=== PATIENT | female | born 1975 | race American Indian/Alaskan Native ===

== ENCOUNTER 2021-12-30 07:59 | Emergency (ER) | payer SELFPAY ==
[2021-12-30] MEDS ORDERED: DICYCLOMINE 20 MG/2 ML INJ IM ONE (10:16)
[2021-12-30] MEDS ORDERED: ONDANSETRON 4 MG ODT TAB PO ONE (10:16)
--- NOTE | 2021-12-30 11:33 | Ultrasound Report ---
ULTRASOUND ABDOMEN, COMPLETE INDICATION: n/v, abdominal pain. COMPARISON: No relevant prior imaging study available. FINDINGS: Pancreas: No significant abnormality. Abdominal Aorta: No significant abnormality. IVC: No significant abnormality. Liver: The liver measures 15 cm in length. No significant abnormality. Normal hepatopedal blood flow in the main portal vein. Gallbladder: No significant abnormality. Bile ducts: No significant abnormality. Common bile duct measures 2 mm. Kidneys: Right: 10.4 cm in length. No significant abnormality. Left: 9.6 cm in length. No signifi cant abnormality. Spleen: No significant abnormality. Free fluid: None. Additional Findings: None. IMPRESSION: No sonographic abnormality of the abdomen. Signer Name: Ike Torres Jr, MD Signed: 12/30/2021 11:29 AM Workstation Name: [id number]
[2021-12-30 11:38] LABS: Mean Corpuscular HGB Conc 31 % (30-34); Mean Corpuscular Volume 71 fl (79-97); Red Blood Count 6.57 M/mm3 (3.65-5.03); Red Cell Distribution Width 17.2 % (13.2-15.2)
[2021-12-30 11:41] LABS: Hematocrit 46.6 % (30.3-42.9); Hemoglobin 14.2 gm/dl (10.1-14.3)
[2021-12-30 11:53] LABS: Alanine Aminotransferase 11 units/L (7-56); Albumin 3.8 g/dL (3.9-5); Blood Urea Nitrogen 16 mg/dL (7-17); Calcium 9.8 mg/dL (8.4-10.2); Hemolysis Index 35
[2021-12-30 12:10] LABS: BUN/Creatinine Ratio 27
[2021-12-30 12:14] LABS: Platelet Count 299 K/mm3 (140-440)
[2021-12-30 13:20] LABS: Bilirubin,Urine NEG (Negative); Blood,Urine SM (Negative); Color,Urine Yellow (Yellow); Mucus,Urine 3+ /HPF; Urobilinogen,Urine < 2.0 mg/dL (<2.0)
--- NOTE | 2021-12-30 13:31 | Emergency Department Report ---
<JOELTRAYGABRIELE BERMANYENIMARISAKarma Gonzales - Last Filed: 12/30/21 16:51> ED N/V/D HPI - General Chief complaint: Nausea/Vomiting/Diarrhea Stated complaint: STOMACH PAIN/VOMITING Time Seen by Provider: 12/30/21 09:57 Source: patient Mode of arrival: Ambulatory Limitations: No Limitations - History of Present Illness Initial comments: 46-year-old black female with a past medical history of hypertension presents to the emergency department for evaluation of 2-day history of nausea, vomiting, and epigastric pain. She states that pain is mostly intermittent but when it comes it is a sharp ache. She denies fever, sick contacts, dysuria, and vaginal discharge. She states that pain mostly to the epigastric and right upper quadrant and is 8 out of 10 and worse with palpation. MD complaint: nausea, vomiting, abdominal pain -: Gradual, days(s) (2) Associated Abdominal Pain: Yes Location: LUQ, RUQ, epigastric Radiation: none Severity: severe Pain Scale: 8 Quality: cramping Consistency: intermittent Worsens with: other (Palpation) Associated Symptoms: denies other symptoms. denies: myalgias, chest pain, cough, diaphoresis, fever/chills, headaches, loss of appetite, malaise, nausea/vomiting, rash, dysuria, shortness of breath, syncope, weakness - Related Data Previous Rx's Medication Instructions Recorded Last Taken Type Dicyclomine [Bentyl] 20 mg PO QID PRN #21 tablet 12/30/21 Unknown Rx Ondansetron [Zofran Odt] 4 mg PO Q8HR PRN #12 tab.rapdis 12/30/21 Unknown Rx Allergies Allergy/AdvReac Type Severity Reaction Status Date / Time No Known Allergies Allergy Unverified 12/30/21 08:17 ED Review of Systems Comment: All other systems reviewed and negative Constitutional: denies: chills, fever Eyes: denies: eye discharge ENT: denies: congestion Respiratory: denies: cough, orthopnea, shortness of breath, SOB with exertion, SOB at rest, wheezing Cardiovascular: denies: chest pain, palpitations, dyspnea on exertion, orthopnea, edema, syncope, paroxysmal nocturnal dyspnea Gastrointestinal: abdominal pain, nausea, vomiting. denies: diarrhea, constipation, hematemesis, melena, hematochezia Genitourinary: denies: urgency, dysuria, frequency, hematuria, discharge, abnormal menses Musculoskeletal: denies: back pain Skin: denies: rash, lesions Neurological: denies: headache, weakness, numbness, paresthesias, abnormal gait Psychiatric: denies: anxiety, depression ED Past Medical Hx - Medications Home Medications: Home Medications Medication Instructions Recorded Confirmed Last Taken Type Dicyclomine [Bentyl] 20 mg PO QID PRN #21 tablet 12/30/21 Unknown Rx Ondansetron [Zofran Odt] 4 mg PO Q8HR PRN #12 tab.rapdis 12/30/21 Unknown Rx ED Physical Exam - General Limitations: No Limitations General appearance: alert, in no apparent distress - Head Head exam: Present: atraumatic, normocephalic - Eye Eye exam: Present: normal appearance - ENT ENT exam: Present: normal exam - Neck Neck exam: Present: normal inspection, full ROM. Absent: tenderness, lymphadenopathy - Respiratory Respiratory exam: Present: normal lung sounds bilaterally. Absent: respiratory distress, wheezes, rales, rhonchi, stridor, chest wall tenderness - Cardiovascular Cardiovascular Exam: Present: regular rate, normal heart sounds - GI/Abdominal GI/Abdominal exam: Present: soft, tenderness (Bilateral upper quadrant and epigastric area), normal bowel sounds. Absent: distended, guarding, rebound, rigid - Extremities Exam Extremities exam: Present: normal inspection, normal capillary refill. Absent: pedal edema, joint swelling, calf tenderness - Back Exam Back exam: Present: normal inspection. Absent: CVA tenderness (R), CVA tenderness (L) - Neurological Exam Neurological exam: Present: alert, oriented X3. Absent: normal gait - Psychiatric Psychiatric exam: Present: normal affect, normal mood - Skin Skin exam: Present: warm, dry, intact, normal color ED Course - Reevaluation(s) Reevaluation #1: 12/30/21 13:20 Symptoms mostly resolved with medication, and patient states that she feels much better. ED Medical Decision Making - Lab Data Result diagrams: 12/30/21 11:17 12/30/21 11:17 - Radiology Data Radiology results: report reviewed, image reviewed Ultrasound abdominal complete: FINDINGS: Pancreas: No significant abnormality. Abdominal Aorta: No significant abnormality. IVC: No significant abnormality. Liver: The liver measures 15 cm in length. No significant abnormality. Normal hepatopedal blood flow in the main portal vein. Gallbladder: No significant abnormality. Bile ducts: No significant abnormality. Common bile duct measures 2 mm. Kidneys: Right: 10.4 cm in length. No significant abnormality. Left: 9.6 cm in length. No significant abnormality. Spleen: No significant abnormality. Free fluid: None. Additional Findings: None. IMPRESSION: No sonographic abnormality of the abdomen. - Medical Decision Making 46-year-old black female with a past medical history of hypertension presents to the emergency department for evaluation of 2-day history of nausea, vomiting, and epigastric pain. She states that pain is mostly intermittent but when it comes it is a sharp ache. She denies fever, sick contacts, dysuria, and vaginal discharge. She states that pain mostly to the epigastric and right upper quadrant and is 8 out of 10 and worse with palpation. No gross abnormalities noted on exam or labs. Urine negative for UA. Abdominal ultrasound without any acute abnormalities noted. Patient improved after medic ation, so symptoms likely secondary to gastroenteritis. Patient will be discharged home with Zofran and Bentyl to use as needed for nausea, vomiting, and abdominal cramping. And follow-up with primary care provider if worsening symptoms. She verbalizes understanding of and agreement with plan of care. ED Disposition Clinical Impression: Nausea and vomiting Qualifiers: Vomiting type: unspecified Qualified Code(s): R11.2 - Nausea with vomiting, unspecified Abdominal pain Qualifiers: Abdominal location: epigastric Qualified Code(s): R10.13 - Epigastric pain Disposition: 01 HOME / SELF CARE / HOMELESS Is pt being admited?: No Does the pt Need Aspirin: No Condition: Stable Instructions: Nausea and Vomiting, Adult, [id number], Abdominal Pain, Adult, [id number] Additional Instructions: Take medications as prescribed. Follow-up with primary care provider if worsening symptoms. Return to the emergency department as needed. Prescriptions: Dicyclomine [Bentyl] 20 mg PO QID PRN #21 tablet PRN Reason: Pain, Moderate (4-6) Ondansetron [Zofran Odt] 4 mg PO Q8HR PRN #12 tab.rapdis PRN Reason: Nausea And Vomiting Referrals: FAB JESSICA MD [Primary Care Provider] - 3-5 Days Forms: Work/School Release Form(ED) Time of Disposition: 13:31 <CHERIE PENA - Last Filed: 01/02/22 10:03> ED Review of Systems ROS: Stated complaint: STOMACH PAIN/VOMITING Other details as noted in HPI ED Course Vital Signs 12/30/21 12/30/21 12/30/21 08:11 13:51 14:06 Temperature 98.3 F 98.2 F 98.2 F Pulse Rate 96 H 65 68 Respiratory 18 14 12 Rate Blood Pressure 142/97 118/84 140/85 [Left] O2 Sat by Pulse 98 99 99 Oximetry ED Medical Decision Making - Lab Data Result diagrams: 12/30/21 11:17 12/30/21 11:17 - Medical Decision Making I have reviewed the PA/FIRE WATCHER's note and plan of care. I was available for consultation as needed at all times during the patient's visit in the emergency department but was not consulted on this case. Critical care attestation.: If time is entered above; I have spent that time in minutes in the direct care of this critically ill patient, excluding procedure time.
[2021-12-30 14:07] VITALS: BP 140/85
== END 2021-12-30 14:07 | disposition home or self-care (01) ==
LOC: ED 07:59
DX: R11.2 Nausea with vomiting, unspecified (principal); R10.13 Epigastric pain
CPT/HCPCS: 36415; 76700; 80053; 81001; 83690; 84703; 85027; 96372; 99284; J0500; J3490; Q0162